=== PATIENT | male | born 1955 | race Caucasian/White ===

== ENCOUNTER 2022-03-09 05:45 | Day surgery (SDC) | payer MEDICARE, MEDICAID ==
[~2022-03-09] VITALS: Ht 165.1 cm; Wt 67.7 kg
[~2022-03-09 05:45] MED LIST: ALBU8.5H8 IH; ALBU8HFA4 IH; ATOR40TA28 PO; BUDE10.2 IH; CARV3 PO; FLUT16H NASAL; HYDR28.35 PR; INSLAN SQ; INSNOV SQ; OMEP20 PO; PROC10TA61 PO; QUET25TA PO; SODIUM CHLORIDE 0.9% 1,000 ML IV ONE
[2022-03-09] MEDS ORDERED: LIDOCAINE 4% 50 ML SOLUTION TP ONE (05:46)
[2022-03-09] MEDS ORDERED: LIDOCAINE 2% 11 ML JELLY TP ONE (05:46)
[2022-03-09] MEDS ORDERED: ALBUTEROL SULFATE 2.5 MG/0.5 ML NEB SOLUTION NEB ONE (05:46)
[2022-03-09] MEDS ORDERED: BENZOCAINE 20% 50 MCG/SPRAY 57 GM TP ONE (05:46)
[2022-03-09 06:31] LABS: COVID AG,FIA SOURCE NASOPHARYNGEAL
[2022-03-09] MEDS ORDERED: SODIUM CHLORIDE 0.9% 1,000 ML ONE (07:03)
[2022-03-09 07:46] LABS: GLUCOMETER DEV NAME(LOC) SDS.; GLUCOSE,POINT OF CARE 231 MG/DL (70-110)
[2022-03-09] MEDS ORDERED: FentaNYL CITRATE PF 100 MCG/2 ML VIAL ONE (07:56)
[2022-03-09] MEDS ORDERED: MIDAZOLAM HCL 5 MG/ML VIAL ONE (07:56)
[2022-03-09] MEDS ORDERED: SODIUM CHLORIDE 0.9% 10 ML ONE (08:11)
[2022-03-09] MEDS ORDERED: LISI-894 PO (08:35)
[2022-03-09] MEDS ORDERED: AMLO-257 PO (08:35)
[2022-03-09] MEDS ORDERED: EMPA1TAB7 (08:35)
[2022-03-09] MEDS ORDERED: ROSU20TA73 PO (08:35)
[2022-03-09] MEDS ORDERED: AMOX500C2 PO (08:35)
[2022-03-09] MEDS ORDERED: METO50 PO (08:54)
[2022-03-09] MEDS ORDERED: ACET-3385 PO (08:57)
[2022-03-09] MEDS ORDERED: MethylPREDNISolone SOD SUCC 125 MG/2 ML VIAL IVP ONE (09:00)
[2022-03-09] MEDS ORDERED: MethylPREDNISolone SOD SUCC 125 MG/2 ML VIAL ONE (09:10)
[2022-03-09] MEDS ORDERED: OXYGEN THERAPY IH SCH (20:00)
== END 2022-03-09 11:15 | disposition home or self-care (01) ==
LOC: SURGERY 05:45
PROVIDERS: ATTEND Internal Medicine Critical Care Medicine
DX: R05.3 Chronic cough (principal); R91.1 Solitary pulmonary nodule; J98.09 Other diseases of bronchus, not elsewhere classified; J98.8 Other specified respiratory disorders; Z79.899 Other long term (current) drug therapy; Z98.890 Other specified postprocedural states
CPT/HCPCS: 31623; 31624; 71045; 82962; 87015; 87070; 87101; 87206; 87220; 87426; 88112; 88305; 88312; C9803; J2250; J2930; J3010; J7030; Q9967; J7613; Z7610